=== PATIENT | male | born 1970 | race Caucasian/White ===

== ENCOUNTER 2022-07-11 19:20 | Emergency (ER) | payer MEDICAID ==
[~2022-07-11] VITALS: Ht 172.7 cm; Wt 80.0 kg
[2022-07-11 19:40] VITALS: BP 126/86
[2022-07-11] MEDS ORDERED: AMOX1TAB16 MT (20:12)
[2022-07-11] MEDS ORDERED: GUAI600T26 MT (20:12)
== END 2022-07-11 20:45 | disposition home or self-care (01) ==
LOC: ER 19:20
DX: J32.9 Chronic sinusitis, unspecified (principal); J45.909 Unspecified asthma, uncomplicated; I50.9 Heart failure, unspecified
CPT/HCPCS: 99283

== ENCOUNTER 2023-08-25 10:28 | Emergency (ER) | payer MEDICAID ==
[~2023-08-25] VITALS: Ht 177.8 cm; Wt 77.0 kg
[~2023-08-25 10:28] MED LIST: AMOX1TAB16 MT; GUAI600T26 MT
[2023-08-25 10:30] VITALS: BP 104/66; PULSE 110; RESP 18; TEMP 98.3; O2SAT 98
== END 2023-08-25 11:34 | disposition home or self-care (01) ==
LOC: ER 10:28
DX: F19.90 Other psychoactive substance use, unspecified, uncomplicated (principal); J45.909 Unspecified asthma, uncomplicated; I50.9 Heart failure, unspecified; E78.00 Pure hypercholesterolemia, unspecified; I11.0 Hypertensive heart disease with heart failure; Z98.890 Other specified postprocedural states
CPT/HCPCS: 93005; 99283

== ENCOUNTER 2024-01-05 12:46 | Inpatient (IN) | payer MEDICAID ==
[~2024-01-05] VITALS: Ht 172.7 cm; Wt 89.8 kg
[~2024-01-05 12:46] MED LIST changes: +ALBU6.7H15 INH; +ASPI-1160 PO
[2024-01-05 13:18] LABS: BASOPHILS % 0.6 % (0.0-2.0); DIFFERENTIAL COMMENT 0; EOSINOPHILS % 1.1 % (0.0-5.0); HEMOGLOBIN. 16.4 g/dL (14.0-18.0); MEAN CORPUSCULAR HEMOGLOBIN 27.5 pg (28.0-32.0); MEAN CORPUSCULAR HGB CONC 29.9 g/dL (31.0-37.0); MEAN CORPUSCULAR VOLUME 91.8 fL (80.0-94.0); MEAN PLATELET VOLUME 9.4 fl (7.4-10.4); MONOCYTES % 11.6 % (2.0-8.0); NEUTROPHILS % 65.7 % (40.0-76.0); PLATELET 186 x1000/uL (130-400); RED BLOOD CELL COUNT 5.99 mill/uL (4.7-6.1); WHITE BLOOD COUNT 7.3 x1000/uL (4.5-11.0)
[2024-01-05] MEDS: FUROSEMIDE 20MG TABLET PO ONE (13:45)
[2024-01-05 14:30] LABS: CLARITY URINE CLEAR (CLEAR); COLOR URINE DARK YELLOW (YELLOW); GLUCOSE URINE NEGATIVE (NEGATIVE); KETONES URINE NEGATIVE (NEGATIVE); LEUKOCYTE ESTERASE URINE NEGATIVE (NEGATIVE); NITRITE URINE NEGATIVE (NEGATIVE); OCCULT BLOOD URINE NEGATIVE (NEGATIVE); PH URINE 5.5 (4.5-8.0); PROTEIN URINE 2+ (NEGATIVE); SPECIFIC GRAVITY URINE 1.023 (1.005-1.030)
[2024-01-05 14:44] LABS: SQUAMOUS EPITHELIAL CELL URINE NONE SEEN /lpf (RARE/1+)
[2024-01-05 14:46] LABS: WBC URINE 0-2 /hpf (0-2)
[2024-01-05 14:47] LABS: BACTERIA URINE TRACE; RBC URINE 0-2 /hpf (0-2)
[2024-01-05 15:09] LABS: CARBON DIOXIDE 23 mEq/L (21-32); CHLORIDE 103 mEq/L (98-107); POTASSIUM 5.2 mEq/L (3.5-5.1); SODIUM 132 mEq/L (136-145)
[2024-01-05 15:10] LABS: CALCIUM 8.5 mg/dL (8.7-10.4)
[2024-01-05 15:14] LABS: CREATININE 1.3 mg/dL (0.6-1.3)
[2024-01-05 15:15] LABS: GLUCOSE 120 mg/dL (70-105); UREA NITROGEN BLOOD 30 mg/dL (9-23)
[2024-01-05 15:17] LABS: ALANINE AMINOTRANSFERASE 398 IU/L (10-49); ALBUMIN 2.7 g/dL (3.2-4.8); ASPARTATE AMINOTRANSFERASE 180 IU/L (<34); BILIRUBIN DIRECT 1.5 mg/dL (<=3.0); BILIRUBIN TOTAL 2.9 mg/dL (0.1-1.0); PROTEIN TOTAL 6.4 g/dL (6.0-8.3)
[2024-01-05 15:22] LABS: TROPONIN I HIGH SENSITIVITY 237 ng/L (3.0-53)
[2024-01-05] MEDS ORDERED: FUROSEMIDE 40MG/4ML VIAL IVP ONE (15:45)
[2024-01-05] MEDS: FUROSEMIDE 40MG/4ML VIAL IVP NR (18:03)
[2024-01-05 23:23] LABS: TROPONIN I HIGH SENSITIVITY 208 ng/L (3.0-53)
[2024-01-06 01:28] VITALS: BP 113/76; PULSE 98; RESP 18; TEMP 36.696
[2024-01-06 01:51] VITALS: BP 113/76; RESP 18; TEMP 36.72516; O2SAT 98
[2024-01-06] MEDS ORDERED: MORPHINE SULFATE 2 MG/ML INJ (NOT FOR IM USE) IV PRN (04:30)
[2024-01-06] MEDS: FUROSEMIDE 40MG/4ML VIAL IVP NR (04:41)
[2024-01-06 06:24] LABS: TROPONIN I HIGH SENSITIVITY 243 ng/L (3.0-53)
[2024-01-06 09:00] VITALS: BP 127/88; PULSE 71; RESP 18; TEMP 36.418
[2024-01-06 12:00] VITALS: BP 127/88; PULSE 71; RESP 18; TEMP 36.33624; O2SAT 98
[2024-01-06] MEDS ORDERED: ONDANSETRON HCL 4MG/2ML INJ IV PRN (13:15)
[2024-01-06] MEDS ORDERED: CLONIDINE 0.1MG TABLET PO PRN (13:15)
[2024-01-06] MEDS: FUROSEMIDE 40MG/4ML VIAL IVP SCH (13:29)
[2024-01-06] MEDS ORDERED: MAGNESIUM 2 G PREMIX 50 ML IV ONE (13:30)
[2024-01-06] MEDS: ENOXAPARIN 40MG/0.4ML SYR SUBCUT SCH (13:30)
[2024-01-06 16:00] VITALS: BP 110/76; PULSE 92; RESP 20; TEMP 36.28068; O2SAT 97
[2024-01-06 16:38] LABS: CARBON DIOXIDE 26 mEq/L (21-32); CHLORIDE 103 mEq/L (98-107); POTASSIUM 3.8 mEq/L (3.5-5.1); SODIUM 135 mEq/L (136-145)
[2024-01-06 16:39] LABS: CALCIUM 7.9 mg/dL (8.7-10.4)
[2024-01-06 16:43] LABS: CREATININE 1.2 mg/dL (0.6-1.3); GLUCOSE 117 mg/dL (70-105)
[2024-01-06 16:44] LABS: UREA NITROGEN BLOOD 26 mg/dL (9-23)
[2024-01-06 16:46] LABS: CREATINE KINASE MB FRACTION 7.9 ng/mL (0.5-3.6); PHOSPHORUS 3.8 mg/dL (2.5-4.9)
[2024-01-06 20:00] VITALS: BP 108/76; PULSE 89; RESP 19; TEMP 36.3918; O2SAT 98
[2024-01-06] MEDS ORDERED: ZOLPIDEM TARTRATE 5MG TABLET PO PRN (21:00)
[2024-01-06 22:25] LABS: CREATINE KINASE MB FRACTION 7.2 ng/mL (0.5-3.6)
[2024-01-07] VITALS (10 sets, daily range): BP systolic 103–122; BP diastolic 65–81; PULSE 80–105; RESP 16–26; TEMP 35.2806–36.6696; O2SAT 94–100
[2024-01-07] MEDS: IPRATROPIUM/ALBUTEROL 0.5-3(2.5)MG/3ML NEB HHN SCH (00:52)
[2024-01-07] MEDS: ACETAMINOPHEN 325MG TABLET PO PRN (04:32)
[2024-01-07 07:08] LABS: CHOLESTEROL 85 mg/dL (<200); TRIGLYCERIDE 100 mg/dL (0-150)
[2024-01-07 07:09] LABS: LDL CHOLESTEROL 61 mg/dL (5-100)
[2024-01-07 07:10] LABS: HDL CHOLESTEROL < 20 mg/dL (>55)
[2024-01-07 07:49] LABS: CHLORIDE 102 mEq/L (98-107); POTASSIUM 3.2 mEq/L (3.5-5.1); SODIUM 136 mEq/L (136-145)
[2024-01-07 07:50] LABS: CARBON DIOXIDE 27 mEq/L (21-32)
[2024-01-07 07:51] LABS: CALCIUM 7.4 mg/dL (8.7-10.4)
[2024-01-07 07:55] LABS: CREATININE 1.2 mg/dL (0.6-1.3); GLUCOSE 128 mg/dL (70-105)
[2024-01-07 07:56] LABS: UREA NITROGEN BLOOD 26 mg/dL (9-23)
[2024-01-07] MEDS: MAGNESIUM 4 G PREMIX 100 ML IV NR (11:18)
[2024-01-07 11:47] LABS: CLARITY URINE CLEAR (CLEAR); COLOR URINE YELLOW (YELLOW); GLUCOSE URINE NEGATIVE (NEGATIVE); KETONES URINE NEGATIVE (NEGATIVE); LEUKOCYTE ESTERASE URINE NEGATIVE (NEGATIVE); NITRITE URINE NEGATIVE (NEGATIVE); OCCULT BLOOD URINE NEGATIVE (NEGATIVE); PROTEIN URINE NEGATIVE (NEGATIVE); SPECIFIC GRAVITY URINE 1.008 (1.005-1.030)
[2024-01-07 11:50] LABS: *AMPHETAMINES SCREEN URINE NEGATIVE (NEGATIVE); *BARBITURATES SCREEN URINE NEGATIVE (NEGATIVE); *BENZODIAZEPINES SCREEN URINE NEGATIVE (NEGATIVE); *COCAINE SCREEN URINE NEGATIVE (NEGATIVE)
[2024-01-07 11:51] LABS: CANNABINOID URINE SCREEN PRESUMPTIVE POSITIVE (NEGATIVE); ECSTASY MDMA SCREEN URINE NEGATIVE (NEGATIVE); METHADONE URINE SCREEN NEGATIVE (NEGATIVE); OPIATES URINE SCREEN NEGATIVE (NEGATIVE); PHENCYCLIDINE URINE SCREEN NEGATIVE (NEGATIVE)
[2024-01-07] MEDS: POTASSIUM CHLORIDE 20MEQ/PACKET PO NR (13:14)
[2024-01-07] MEDS: FUROSEMIDE 40MG/4ML VIAL IVP ONE (16:55)
[2024-01-07 19:27] LABS: BASOPHILS % 0.4 % (0.0-2.0); EOSINOPHILS % 1.7 % (0.0-5.0); HEMATOCRIT. 49.5 % (42.0-52.0); HEMOGLOBIN. 15.9 g/dL (14.0-18.0); LYMPHOCYTES % 16.7 % (20.0-50.0); MEAN CORPUSCULAR HEMOGLOBIN 28.2 pg (28.0-32.0); MEAN CORPUSCULAR HGB CONC 32.1 g/dL (31.0-37.0); MEAN CORPUSCULAR VOLUME 87.9 fL (80.0-94.0); MEAN PLATELET VOLUME 8.8 fl (7.4-10.4); MONOCYTES % 11.5 % (2.0-8.0); NEUTROPHILS % 69.7 % (40.0-76.0); PLATELET 181 x1000/uL (130-400); RED BLOOD CELL COUNT 5.63 mill/uL (4.7-6.1); RED CELL DISTRIBUTION WIDTH 16.1 % (11.6-14.6); WHITE BLOOD COUNT 5.2 x1000/uL (4.5-11.0)
[2024-01-07 19:35] LABS: CHLORIDE 100 mEq/L (98-107); POTASSIUM 3.9 mEq/L (3.5-5.1); SODIUM 135 mEq/L (136-145)
[2024-01-07 19:36] LABS: CARBON DIOXIDE 30 mEq/L (21-32)
[2024-01-07 19:37] LABS: CALCIUM 7.8 mg/dL (8.7-10.4)
[2024-01-07 19:41] LABS: CREATININE 1.2 mg/dL (0.6-1.3)
[2024-01-07 19:42] LABS: GLUCOSE 98 mg/dL (70-105); UREA NITROGEN BLOOD 22 mg/dL (9-23)
[2024-01-07 19:55] LABS: TROPONIN I HIGH SENSITIVITY 217 ng/L (3.0-53)
[2024-01-07 20:41] LABS: HEPATITIS B SURFACE ANTIGEN NEGATIVE (Negative)
[2024-01-07 21:01] LABS: HEPATITIS A AB IGM NEGATIVE (Negative)
[2024-01-07 21:02] LABS: HEPATITIS B CORE AB IGM NEGATIVE (Negative); HEPATITIS C AB NON REACTIVE (Neg) (Negative)
[2024-01-08] VITALS (8 sets, daily range): BP systolic 92–114; BP diastolic 60–87; PULSE 66–102; RESP 18–22; TEMP 36.114–36.6696; O2SAT 96–100
[2024-01-08] MEDS: IPRATROPIUM/ALBUTEROL 0.5-3(2.5)MG/3ML NEB HHN PRN (04:24)
[2024-01-08] MEDS ORDERED: FURO-151 MT (10:47)
== END 2024-01-08 15:10 | disposition home or self-care (01) | DRG 190 ==
LOC: ER 12:50 → EDBEDREQ 15:38 → 5WST 16:53 → EDBEDREQ 17:25 → EDBEDREQTM 17:25 → 7EST 01-06 09:17
PROVIDERS: ADMIT Internal Medicine; ATTEND Internal Medicine
DX: I21.4 Non-ST elevation (NSTEMI) myocardial infarction (principal); J96.01 Acute respiratory failure with hypoxia; I50.43 Acute on chronic combined systolic (congestive) and diastolic (congestive) heart failure; I11.0 Hypertensive heart disease with heart failure; J44.1 Chronic obstructive pulmonary disease with (acute) exacerbation; E87.1 Hypo-osmolality and hyponatremia; E88.09 Other disorders of plasma-protein metabolism, not elsewhere classified; F15.10 Other stimulant abuse, uncomplicated; E87.5 Hyperkalemia; E78.00 Pure hypercholesterolemia, unspecified; F17.210 Nicotine dependence, cigarettes, uncomplicated; T50.2X6A Underdosing of carbonic-anhydrase inhibitors, benzothiadiazides and other diuretics, initial encounter; Z91.148 Patient's other noncompliance with medication regimen for other reason; Z59.00 Homelessness unspecified; Y92.89 Other specified places as the place of occurrence of the external cause
CPT/HCPCS: 36415; 71045; 76700; 80048; 80061; 80076; 80305; 81003; 82550; 82553; 82962; 83735; 83880; 84100; 84484; 85025; 86705; 86709; 87340; 93005; 93970; 94640; 99291; C1893; J1650; J1940; J3475

== ENCOUNTER 2024-01-19 13:32 | Inpatient (IN) | payer MEDICAID ==
[~2024-01-19] VITALS: Ht 172.7 cm; Wt 97.7 kg
[~2024-01-19 13:32] MED LIST changes: -AMOX1TAB16 MT; +FURO-151 MT; -GUAI600T26 MT
[2024-01-19] MEDS: PIPERACILLIN/TAZO 3.375G/50ML 50 ML IV ONE (14:51)
[2024-01-19] MEDS: SODIUM CHLORIDE 0.9% 1,000 ML IV ONE (14:51)
[2024-01-19 16:04] LABS: CLARITY URINE CLEAR (CLEAR); COLOR URINE ORANGE (YELLOW); GLUCOSE URINE NEGATIVE (NEGATIVE); KETONES URINE NEGATIVE (NEGATIVE); LEUKOCYTE ESTERASE URINE 1+ (NEGATIVE); NITRITE URINE POSITIVE (NEGATIVE); OCCULT BLOOD URINE TRACE (NEGATIVE); PROTEIN URINE 3+ (NEGATIVE); SPECIFIC GRAVITY URINE 1.028 (1.005-1.030)
[2024-01-19 16:44] LABS: BACTERIA URINE 3+; RBC URINE 0-2 /hpf (0-2); SQUAMOUS EPITHELIAL CELL URINE NONE SEEN /lpf (RARE/1+)
[2024-01-19] MEDS: VANCOMYCIN 1G PREMIX 200 ML IV ONE (17:45)
[2024-01-19 19:08] LABS: DIFFERENTIAL COMMENT 0; EOSINOPHILS % 1.1 % (0.0-5.0); HEMATOCRIT. 48.8 % (42.0-52.0); HEMOGLOBIN. 14.8 g/dL (14.0-18.0); LYMPHOCYTES % 8.2 % (20.0-50.0); MEAN CORPUSCULAR HEMOGLOBIN 27.8 pg (28.0-32.0); MEAN CORPUSCULAR HGB CONC 30.3 g/dL (31.0-37.0); MEAN CORPUSCULAR VOLUME 91.5 fL (80.0-94.0); MEAN PLATELET VOLUME 9.2 fl (7.4-10.4); NEUTROPHILS % 82.7 % (40.0-76.0); PLATELET 170 x1000/uL (130-400); RED BLOOD CELL COUNT 5.33 mill/uL (4.7-6.1); RED CELL DISTRIBUTION WIDTH 16.9 % (11.6-14.6); WHITE BLOOD COUNT 6.2 x1000/uL (4.5-11.0)
[2024-01-19 19:16] LABS: CHLORIDE 100 mEq/L (98-107); POTASSIUM 4.4 mEq/L (3.5-5.1); SODIUM 134 mEq/L (136-145)
[2024-01-19 19:17] LABS: CALCIUM 8.2 mg/dL (8.7-10.4); CARBON DIOXIDE 27 mEq/L (21-32); INR 1.5; PROTHROMBIN TIME 16.3 sec (9.6-11.0)
[2024-01-19 19:22] LABS: CREATININE 1.2 mg/dL (0.6-1.3); GLUCOSE 98 mg/dL (70-105); UREA NITROGEN BLOOD 25 mg/dL (9-23)
[2024-01-19 19:24] LABS: ALANINE AMINOTRANSFERASE 66 IU/L (10-49); ALBUMIN 2.8 g/dL (3.2-4.8); ASPARTATE AMINOTRANSFERASE 65 IU/L (<34); BILIRUBIN DIRECT 1.6 mg/dL (<=3.0); BILIRUBIN TOTAL 2.7 mg/dL (0.1-1.0); PROTEIN TOTAL 6.5 g/dL (6.0-8.3)
[2024-01-19 19:48] LABS: TROPONIN I HIGH SENSITIVITY 242 ng/L (3.0-53)
[2024-01-19 19:49] LABS: LACTIC ACID 4.9 mmol/L (0.4-2.0)
[2024-01-19 21:35] VITALS: BP 141/109; PULSE 111; RESP 18; TEMP 36.78072; O2SAT 96
[2024-01-19] MEDS ORDERED: HYDROCODONE/ACETAMINOPHEN 5/325MG TABLET PO PRN (22:45)
[2024-01-19] MEDS ORDERED: MAGNESIUM/ALUMINUM HYDROXIDE/SIMETHICONE 30ML UDC PO PRN (22:45)
[2024-01-19] MEDS ORDERED: GUAIFENESIN 200MG/10ML SUGAR FREE UDC PO PRN (22:45)
[2024-01-19] MEDS ORDERED: ACETAMINOPHEN 325MG TABLET PO PRN ×2 (22:45)
[2024-01-19] MEDS ORDERED: CLONIDINE 0.1MG TABLET PO PRN (22:45)
[2024-01-19] MEDS ORDERED: DOCUSATE SODIUM 100MG CAPSULE PO PRN (22:45)
[2024-01-19 22:55] VITALS: BP 141/109; PULSE 111; RESP 18; TEMP 36.8072
[2024-01-19 23:15] LABS: PHOSPHORUS 3.8 mg/dL (2.5-4.9)
[2024-01-19] MEDS: FUROSEMIDE 100MG/10ML VIAL IV NR (23:32)
[2024-01-20 00:41] VITALS: BP 113/84; PULSE 62; RESP 19; TEMP 36.16956; O2SAT 95
[2024-01-20] MEDS: ONDANSETRON HCL 4MG/2ML INJ IV PRN (00:54)
[2024-01-20 01:19] LABS: HEPATITIS B SURFACE ANTIGEN NEGATIVE (Negative)
[2024-01-20] MEDS: LORAZEPAM 0.5MG TABLET PO PRN (01:19)
[2024-01-20] MEDS: MAGNESIUM 4 G PREMIX 100 ML IV NR (01:27)
[2024-01-20 01:36] LABS: TROPONIN I HIGH SENSITIVITY 257 ng/L (3.0-53)
[2024-01-20 01:40] LABS: HEPATITIS C AB NON REACTIVE (Neg) (Negative)
[2024-01-20 04:00] VITALS: BP 135/84; PULSE 67; RESP 19; TEMP 35.66952; O2SAT 92
[2024-01-20] MEDS: LEVOFLOXACIN 750MG PREMIX 150 ML IV SCH (04:29)
[2024-01-20 06:13] LABS: AMMONIA 18 uMol/L (<32)
[2024-01-20 06:25] LABS: CALCIUM 8.7 mg/dL (8.7-10.4)
[2024-01-20 06:31] LABS: CREATININE 1.3 mg/dL (0.6-1.3)
[2024-01-20 06:32] LABS: ALANINE AMINOTRANSFERASE 67 IU/L (10-49)
[2024-01-20 06:33] LABS: ALBUMIN 2.8 g/dL (3.2-4.8); ASPARTATE AMINOTRANSFERASE 67 IU/L (<34); BILIRUBIN DIRECT 1.7 mg/dL (<=3.0); T4 FREE 0.62 ng/dL (0.89-1.76); THYROID STIMULATING HORMONE 11.73 uIU/mL (0.55-4.78)
[2024-01-20 06:34] LABS: BILIRUBIN TOTAL 2.8 mg/dL (0.1-1.0); PROTEIN TOTAL 6.6 g/dL (6.0-8.3)
[2024-01-20 06:37] LABS: BASOPHILS % 1.2 % (0.0-2.0); EOSINOPHILS % 1.5 % (0.0-5.0); HEMATOCRIT. 46.3 % (42.0-52.0); HEMOGLOBIN. 14.5 g/dL (14.0-18.0); LYMPHOCYTES % 9.4 % (20.0-50.0); MEAN CORPUSCULAR HEMOGLOBIN 28.1 pg (28.0-32.0); MEAN CORPUSCULAR HGB CONC 31.3 g/dL (31.0-37.0); MEAN CORPUSCULAR VOLUME 89.8 fL (80.0-94.0); MEAN PLATELET VOLUME 9.8 fl (7.4-10.4); MONOCYTES % 9.5 % (2.0-8.0); NEUTROPHILS % 78.4 % (40.0-76.0); PLATELET 202 x1000/uL (130-400); RED BLOOD CELL COUNT 5.15 mill/uL (4.7-6.1); RED CELL DISTRIBUTION WIDTH 16.8 % (11.6-14.6); WHITE BLOOD COUNT 5.8 x1000/uL (4.5-11.0)
[2024-01-20] MEDS: CLINDAMYCIN 600MG PREMIX 50 ML IV SCH (06:50)
[2024-01-20] MEDS ORDERED: KETOROLAC 15MG/ML VIAL IV PRN (07:00)
[2024-01-20 07:06] LABS: TROPONIN I HIGH SENSITIVITY 247 ng/L (3.0-53)
[2024-01-20] MEDS: FUROSEMIDE 40MG/4ML VIAL IV SCH (07:24)
[2024-01-20 08:00] VITALS: BP 109/79; PULSE 111; RESP 19; TEMP 36.61404; O2SAT 94
[2024-01-20 08:41] LABS: BG BASE EXCESS 2.2 mmol/L (-2.0-3.0); BG CARBOXYHEMOGLOBIN 1.6 % (0.5-1.5); BG DEOXYHEMOGLOBIN 5.6 % (0.0-5.0); BG FRACTION INSPIRED OXYGEN 21; BG OXYGEN SATURATION 94.3 % (94.0-98.0); BG OXYHEMOGLOBIN 92.8 % (94.0-98.0); BG PCO2 33.5 mmHg (35.0-48.0); BG PO2 67.9 mmHg (83.0-108.0); BG SAMPLE SITE RIGHT RADIAL; BG TOTAL HEMOGLOBIN 15.7 g/dL (13.5-17.5); BG VENT MODE ROOM AIR
[2024-01-20] MEDS ORDERED: NA PHOS,M-B/NA PHOS,DI-BA ENEMA 118ML PR PRN (09:00)
[2024-01-20] MEDS: ENOXAPARIN 40MG/0.4ML SYR SUBCUT SCH (11:08)
[2024-01-20] MEDS: PANTOPRAZOLE 40MG DR TABLET PO SCH (11:08)
[2024-01-20] MEDS: ASPIRIN 81MG EC TABLET PO SCH (11:09)
[2024-01-20 12:00] VITALS: BP 137/92; PULSE 62; RESP 19; TEMP 36.05844; O2SAT 98
[2024-01-20] MEDS: METRONIDAZOLE 500 MG PREMIX 100 ML IV SCH (16:45)
[2024-01-20] MEDS: CEFTRIAXONE 1GM/50ML 50ML IV SCH (16:45)
[2024-01-20 20:00] VITALS: BP 110/92; PULSE 111; RESP 20; TEMP 36.44736; O2SAT 96
[2024-01-21] VITALS: BP 122/86; PULSE 95; RESP 19; TEMP 36.9474; O2SAT 97
[2024-01-21 00:23] LABS: TROPONIN I HIGH SENSITIVITY 233 ng/L (3.0-53)
[2024-01-21 03:19] LABS: *AMPHETAMINES SCREEN URINE PRESUMPTIVE POSITIVE (NEGATIVE); *BENZODIAZEPINES SCREEN URINE NEGATIVE (NEGATIVE)
[2024-01-21 03:20] LABS: *BARBITURATES SCREEN URINE NEGATIVE (NEGATIVE); *COCAINE SCREEN URINE NEGATIVE (NEGATIVE); CANNABINOID URINE SCREEN PRESUMPTIVE POSITIVE (NEGATIVE); ECSTASY MDMA SCREEN URINE NEGATIVE (NEGATIVE); METHADONE URINE SCREEN NEGATIVE (NEGATIVE); OPIATES URINE SCREEN NEGATIVE (NEGATIVE); PHENCYCLIDINE URINE SCREEN NEGATIVE (NEGATIVE)
[2024-01-21 04:00] VITALS: BP 129/85; PULSE 95; RESP 20; TEMP 35.89176; O2SAT 99
[2024-01-21 08:00] VITALS: BP 113/76; PULSE 98; RESP 20; TEMP 36.3918; O2SAT 100
[2024-01-21] MEDS ORDERED: LIDOCAINE HCL 1% 10 MG/ML 10ML VIAL ONE (09:06)
[2024-01-21 11:47] VITALS: BP 120/78; PULSE 86; RESP 20; TEMP 36.50292; O2SAT 99
[2024-01-21 16:00] VITALS: BP 115/74; PULSE 91; RESP 18; TEMP 36.3918; O2SAT 100
[2024-01-21 20:00] VITALS: BP 109/80; PULSE 89; RESP 19; TEMP 35.8362; O2SAT 94
[2024-01-21] MEDS ORDERED: SULFAMETHOXAZOLE/TRIMETHOPRIM 800/160MG TABLET PO SCH (20:00)
[2024-01-21] MEDS: BETAMETHASONE DIPROPIONATE 0.05% LOTION 60ML TOP SCH (21:39)
[2024-01-21] MEDS: SULFAMETHOXAZOLE/TRIMETHOPRIM 800/160MG TABLET PO SCH (21:39)
[2024-01-22] VITALS: BP 122/86; PULSE 85; RESP 20; TEMP 35.89176; O2SAT 97
[2024-01-22 04:00] VITALS: BP 119/84; PULSE 70; RESP 19; TEMP 36.28068; O2SAT 96
[2024-01-22 07:42] LABS: CHLORIDE 95 mEq/L (98-107); POTASSIUM 3.8 mEq/L (3.5-5.1); SODIUM 132 mEq/L (136-145)
[2024-01-22 07:43] LABS: CARBON DIOXIDE 28 mEq/L (21-32)
[2024-01-22 07:44] LABS: CALCIUM 8.3 mg/dL (8.7-10.4)
[2024-01-22 07:49] LABS: GLUCOSE 79 mg/dL (70-105); UREA NITROGEN BLOOD 35 mg/dL (9-23)
[2024-01-22 07:50] LABS: ALANINE AMINOTRANSFERASE 51 IU/L (10-49); ALBUMIN 2.4 g/dL (3.2-4.8)
[2024-01-22 07:51] LABS: ASPARTATE AMINOTRANSFERASE 62 IU/L (<34); BILIRUBIN TOTAL 2.1 mg/dL (0.1-1.0); PROTEIN TOTAL 5.8 g/dL (6.0-8.3)
[2024-01-22 08:02] LABS: BASOPHILS % 0.9 % (0.0-2.0); EOSINOPHILS % 3.3 % (0.0-5.0); HEMATOCRIT. 44.4 % (42.0-52.0); HEMOGLOBIN. 14.3 g/dL (14.0-18.0); LYMPHOCYTES % 10.1 % (20.0-50.0); MEAN CORPUSCULAR HGB CONC 32.2 g/dL (31.0-37.0); MEAN PLATELET VOLUME 9.7 fl (7.4-10.4); MONOCYTES % 11.5 % (2.0-8.0); NEUTROPHILS % 74.2 % (40.0-76.0); PLATELET 204 x1000/uL (130-400); RED BLOOD CELL COUNT 5.11 mill/uL (4.7-6.1); RED CELL DISTRIBUTION WIDTH 16.6 % (11.6-14.6); WHITE BLOOD COUNT 5.5 x1000/uL (4.5-11.0)
[2024-01-22 08:03] VITALS: BP 120/89; PULSE 57; RESP 20; TEMP 37.11408; O2SAT 95
[2024-01-22] MEDS ORDERED: LIDOCAINE HCL 1% 10 MG/ML 10ML VIAL ONE (08:13)
[2024-01-22 08:26] LABS: CREATININE 1.7 mg/dL (0.6-1.3)
[2024-01-22 12:30] VITALS: BP 116/87; PULSE 102; RESP 18; TEMP 36.50292; O2SAT 100
[2024-01-22 12:52] LABS: AMYLASE BODY FLUID 26 IU/L
[2024-01-22 14:00] LABS: BODY FLUID MONOCYTES 14 %
[2024-01-22 14:01] LABS: BODY FLUID RBC 1930 /cu mm (0-2000); BODY FLUID WBC 235 /cu mm (0-200)
[2024-01-22 16:00] VITALS: BP 113/89; PULSE 71; RESP 20; TEMP 36.50292; O2SAT 94
[2024-01-23] VITALS (7 sets, daily range): BP systolic 101–118; BP diastolic 66–86; PULSE 68–104; RESP 16–20; TEMP 36.55848–37.05852; O2SAT 97–98
[2024-01-23] MEDS: DIPHENHYDRAMINE 25MG CAPSULE PO NR (00:37)
[2024-01-23] MEDS: IPRATROPIUM/ALBUTEROL 0.5-3(2.5)MG/3ML NEB HHN PRN (06:08)
[2024-01-23 07:04] LABS: HEMATOCRIT 44.1 % (42.0-52.0); MEAN CORPUSCULAR HEMOGLOBIN 27.6 pg (28.0-32.0); MEAN CORPUSCULAR HGB CONC 31.7 g/dL (31.0-37.0); PLATELET 187 x1000/uL (130-400); RED BLOOD CELL COUNT 5.07 mill/uL (4.7-6.1); RED CELL DISTRIBUTION WIDTH 16.7 % (11.6-14.6); WHITE BLOOD COUNT 6.5 x1000/uL (4.5-11.0)
[2024-01-23 07:30] LABS: CALCIUM 8.2 mg/dL (8.7-10.4); POTASSIUM 3.4 mEq/L (3.5-5.1)
[2024-01-23 07:36] LABS: CREATININE 1.5 mg/dL (0.6-1.3)
[2024-01-24] MEDS ORDERED: METRONIDAZOLE 500MG TABLET PO SCH (06:00)
[2024-01-27 13:11] LABS: QFT MITOGEN VALUE 1.14 IU/mL (.); QFT TB GOLD PLUS Negative (Negative)
== END 2024-01-23 16:45 | disposition home or self-care (01) | DRG 890 ==
LOC: ER 13:38 → EDBEDREQ 19:55 → EDBEDREQTM 20:20 → EDBEDREQ 20:20 → 7WST 21:50
PROVIDERS: ADMIT Internal Medicine; ATTEND Internal Medicine
PROC: 02HV33Z Insertion of Infusion Device into Superior Vena Cava, Percutaneous Approach (ICD-10-PCS; 2024-01-21)
PROC: B548ZZA Ultrasonography of Superior Vena Cava, Guidance (ICD-10-PCS; 2024-01-21)
PROC: B5181ZA Fluoroscopy of Superior Vena Cava using Low Osmolar Contrast, Guidance (ICD-10-PCS; 2024-01-21)
PROC: 0W9G3ZZ Drainage of Peritoneal Cavity, Percutaneous Approach (ICD-10-PCS; principal; 2024-01-22)
DX: A41.9 Sepsis, unspecified organism (principal); B20 Human immunodeficiency virus [HIV] disease; J96.00 Acute respiratory failure, unspecified whether with hypoxia or hypercapnia; I21.A1 Myocardial infarction type 2; I50.23 Acute on chronic systolic (congestive) heart failure; L03.115 Cellulitis of right lower limb; E87.20 Acidosis, unspecified; J44.1 Chronic obstructive pulmonary disease with (acute) exacerbation; I11.0 Hypertensive heart disease with heart failure; R18.8 Other ascites; L03.116 Cellulitis of left lower limb; K74.60 Unspecified cirrhosis of liver; E87.5 Hyperkalemia; E80.6 Other disorders of bilirubin metabolism; N39.0 Urinary tract infection, site not specified; E78.00 Pure hypercholesterolemia, unspecified; F15.10 Other stimulant abuse, uncomplicated; Z79.899 Other long term (current) drug therapy
CPT/HCPCS: 36415; 36573; 36600; 49083; 71045; 74176; 76700; 80048; 80053; 80076; 80305; 80320; 81003; 82040; 82140; 82150; 82375; 82805; 83605; 83615; 83735; 83880; 84100; 84145; 84439; 84443; 84484; 85025; 85027; 85379; 86480; 86705; 87077; 87340; 93005; 94640; 99291; C1725; C1893; J0696; J1650; J1940; J1956; J2405; J2543; J3370; J3475; J3490; J7030; Q0163; G0480

== ENCOUNTER 2024-01-24 23:29 | Inpatient (IN) | payer MEDICAID ==
[~2024-01-24] VITALS: Ht 172.7 cm; Wt 92.5 kg
[2024-01-24 23:32] VITALS: O2SAT 95
[2024-01-25 01:44] LABS: HEMATOCRIT. 51.6 % (42.0-52.0); HEMOGLOBIN. 16.5 g/dL (14.0-18.0); MEAN CORPUSCULAR HEMOGLOBIN 27.9 pg (28.0-32.0); MEAN CORPUSCULAR VOLUME 87.2 fL (80.0-94.0); MEAN PLATELET VOLUME 9.9 fl (7.4-10.4); PLATELET 209 x1000/uL (130-400); RED BLOOD CELL COUNT 5.92 mill/uL (4.7-6.1); WHITE BLOOD COUNT 12.7 x1000/uL (4.5-11.0)
[2024-01-25 01:51] LABS: DIFFERENTIAL COMMENT 1
[2024-01-25 01:55] LABS: CARBON DIOXIDE 26 mEq/L (21-32); CHLORIDE 95 mEq/L (98-107); POTASSIUM 4.6 mEq/L (3.5-5.1); SODIUM 131 mEq/L (136-145)
[2024-01-25 01:56] LABS: CALCIUM 9.3 mg/dL (8.7-10.4); INR 1.5; PROTHROMBIN TIME 16.7 sec (9.6-11.0)
[2024-01-25 02:01] LABS: UREA NITROGEN BLOOD 38 mg/dL (9-23)
[2024-01-25] MEDS: PANTOPRAZOLE SODIUM 40 MG/VIAL IV ONE (02:01)
[2024-01-25 02:02] LABS: ALANINE AMINOTRANSFERASE 63 IU/L (10-49); ALBUMIN 3.2 g/dL (3.2-4.8); ASPARTATE AMINOTRANSFERASE 120 IU/L (<34)
[2024-01-25 02:03] LABS: BILIRUBIN TOTAL 3.2 mg/dL (0.1-1.0); PROTEIN TOTAL 7.6 g/dL (6.0-8.3)
[2024-01-25] MEDS: SODIUM CHLORIDE 0.9% 1000ML BAG (SEPSIS BOLUS) IV ONE (02:04)
[2024-01-25 02:35] LABS: ETHANOL BLOOD < 10 mg/dL (<10)
[2024-01-25 02:37] LABS: GLUCOSE 47 mg/dL (70-105)
[2024-01-25 02:38] LABS: TROPONIN I HIGH SENSITIVITY 296 ng/L (3.0-53)
[2024-01-25 02:39] LABS: LACTIC ACID 4.6 mmol/L (0.4-2.0)
[2024-01-25 03:53] LABS: TROPONIN I HIGH SENSITIVITY 297 ng/L (3.0-53)
[2024-01-25] MEDS: DEXTROSE 50% WATER 50ML SYRINGE IV ONE (05:15)
[2024-01-25 05:18] LABS: CREATININE 2.2 mg/dL (0.6-1.3)
[2024-01-25] MEDS: PIPERACILLIN/TAZO 3.375G/50ML 50 ML IV ONE (05:30)
[2024-01-25] MEDS: VANCOMYCIN 1G PREMIX 200 ML IV ONE (06:47)
[2024-01-25 07:20] LABS: CLARITY URINE CLEAR (CLEAR); COLOR URINE DARK YELLOW (YELLOW); GLUCOSE URINE NEGATIVE (NEGATIVE); KETONES URINE NEGATIVE (NEGATIVE); LEUKOCYTE ESTERASE URINE TRACE (NEGATIVE); NITRITE URINE NEGATIVE (NEGATIVE); OCCULT BLOOD URINE NEGATIVE (NEGATIVE); PROTEIN URINE 2+ (NEGATIVE); SPECIFIC GRAVITY URINE 1.022 (1.005-1.030)
[2024-01-25 07:41] LABS: *AMPHETAMINES SCREEN URINE PRESUMPTIVE POSITIVE (NEGATIVE); *BARBITURATES SCREEN URINE NEGATIVE (NEGATIVE); *BENZODIAZEPINES SCREEN URINE NEGATIVE (NEGATIVE); *COCAINE SCREEN URINE NEGATIVE (NEGATIVE)
[2024-01-25 07:42] LABS: CANNABINOID URINE SCREEN PRESUMPTIVE POSITIVE (NEGATIVE); ECSTASY MDMA SCREEN URINE NEGATIVE (NEGATIVE); METHADONE URINE SCREEN NEGATIVE (NEGATIVE); OPIATES URINE SCREEN NEGATIVE (NEGATIVE); PHENCYCLIDINE URINE SCREEN NEGATIVE (NEGATIVE)
[2024-01-25] MEDS ORDERED: IPRATROPIUM/ALBUTEROL 0.5-3(2.5)MG/3ML NEB HHN PRN (08:15)
[2024-01-25 08:20] LABS: BACTERIA URINE NONE SEEN; HYALINE CASTS URINE 0-5 /lpf; RBC URINE 0-2 /hpf (0-2); SQUAMOUS EPITHELIAL CELL URINE RARE /lpf (RARE/1+); WHITE BLOOD CELL CASTS URINE 0-5 /lpf; YEAST URINE NONE SEEN
[2024-01-25 08:49] LABS: LACTIC ACID 3.3 mmol/L (0.4-2.0)
[2024-01-25] MEDS: ONDANSETRON HCL 4MG/2ML INJ IV PRN (08:59)
[2024-01-25] MEDS: DIPHENHYDRAMINE 50MG/ML VIAL IM PRN (08:59)
[2024-01-25 09:06] LABS: CHLORIDE 98 mEq/L (98-107); POTASSIUM 4.4 mEq/L (3.5-5.1); SODIUM 132 mEq/L (136-145)
[2024-01-25 09:07] LABS: CALCIUM 8.4 mg/dL (8.7-10.4); CARBON DIOXIDE 27 mEq/L (21-32)
[2024-01-25 09:12] LABS: GLUCOSE 67 mg/dL (70-105); UREA NITROGEN BLOOD 35 mg/dL (9-23)
[2024-01-25 09:14] LABS: BASOPHILS % 0.4 % (0.0-2.0); EOSINOPHILS % 0.4 % (0.0-5.0); HEMATOCRIT. 46.7 % (42.0-52.0); HEMOGLOBIN. 15.2 g/dL (14.0-18.0); LYMPHOCYTES % 7.4 % (20.0-50.0); MEAN CORPUSCULAR HEMOGLOBIN 28.2 pg (28.0-32.0); MEAN CORPUSCULAR HGB CONC 32.5 g/dL (31.0-37.0); MEAN CORPUSCULAR VOLUME 86.9 fL (80.0-94.0); MEAN PLATELET VOLUME 9.2 fl (7.4-10.4); MONOCYTES % 3.6 % (2.0-8.0); NEUTROPHILS % 88.2 % (40.0-76.0); PHOSPHORUS 4.7 mg/dL (2.5-4.9); PLATELET 162 x1000/uL (130-400); RED BLOOD CELL COUNT 5.37 mill/uL (4.7-6.1); RED CELL DISTRIBUTION WIDTH 16.9 % (11.6-14.6); WHITE BLOOD COUNT 8.7 x1000/uL (4.5-11.0)
[2024-01-25] MEDS: PANTOPRAZOLE SODIUM 40 MG/VIAL IV SCH (10:12)
[2024-01-25] MEDS: VANCOMYCIN 750MG/150ML (BAXTER) IV NR (10:12)
[2024-01-25] MEDS: DEXT 5%/0.45% NACL 500ML 500 ML IV ONE (10:12)
[2024-01-25 10:18] LABS: ANISOCYTOSIS 2+; NUCLEATED RED BLOOD CELLS 2 /100 WBC; PLATELET ESTIMATE NORMAL
[2024-01-25] MEDS: ASPIRIN 81MG TABLET PO SCH (11:49)
[2024-01-25] MEDS: PIPERACILLIN/TAZO 3.375G/50ML 50 ML IV SCH (14:49)
[2024-01-25 17:00] VITALS: BP 100/64; PULSE 66; RESP 18; TEMP 36.22512; TEMP 36.2512; O2SAT 93
[2024-01-25 17:04] LABS: CREATINE KINASE 976 IU/L (46-171)
[2024-01-25 17:08] LABS: TROPONIN I HIGH SENSITIVITY 304 ng/L (3.0-53)
[2024-01-25] MEDS ORDERED: DEXTROSE 50% WATER 50ML SYRINGE IV PRN ×2 (18:30)
[2024-01-25 20:00] VITALS: BP 136/72; PULSE 72; RESP 18; TEMP 36.6696; O2SAT 99
[2024-01-25] MEDS ORDERED: BLOOD SUGAR DIAGNOSTIC STRIP TEST SCH (20:00)
[2024-01-25] MEDS: INSULIN LISPRO 100 UNITS/ML SUBCUT SCH (21:00)
[2024-01-25] MEDS: BLOOD SUGAR DIAGNOSTIC STRIP TEST SCH (21:00)
[2024-01-25] MEDS ORDERED: INSULIN LISPRO 100 UNITS/ML SUBCUT SCH (21:00)
[2024-01-26] VITALS: BP 108/72; PULSE 123; RESP 20; TEMP 36.78072; O2SAT 94
[2024-01-26 00:12] LABS: CREATINE KINASE 1614 IU/L (46-171)
[2024-01-26 00:15] LABS: TROPONIN I HIGH SENSITIVITY 366 ng/L (3.0-53)
[2024-01-26 04:00] VITALS: BP 113/85; PULSE 116; RESP 19; TEMP 36.55848; O2SAT 92
[2024-01-26 07:35] LABS: POTASSIUM 4.2 mEq/L (3.5-5.1)
[2024-01-26 07:36] LABS: CALCIUM 8.5 mg/dL (8.7-10.4)
[2024-01-26 07:41] LABS: CREATININE 2.3 mg/dL (0.6-1.3)
[2024-01-26 08:00] VITALS: BP 101/77; PULSE 113; RESP 20; TEMP 36.16956; O2SAT 97
[2024-01-26 08:19] LABS: HEMATOCRIT. 46.9 % (42.0-52.0); HEMOGLOBIN. 14.6 g/dL (14.0-18.0); MEAN CORPUSCULAR HEMOGLOBIN 27.8 pg (28.0-32.0); MEAN CORPUSCULAR HGB CONC 31.2 g/dL (31.0-37.0); MEAN CORPUSCULAR VOLUME 89.1 fL (80.0-94.0); MEAN PLATELET VOLUME 9.4 fl (7.4-10.4); PLATELET 165 x1000/uL (130-400); RED BLOOD CELL COUNT 5.27 mill/uL (4.7-6.1); RED CELL DISTRIBUTION WIDTH 17.2 % (11.6-14.6); WHITE BLOOD COUNT 8.3 x1000/uL (4.5-11.0)
[2024-01-26 08:49] LABS: DIFFERENTIAL COMMENT 1
[2024-01-26 12:00] VITALS: BP 98/79; PULSE 101; RESP 18; TEMP 35.89176; O2SAT 95
[2024-01-26 13:51] LABS: TROPONIN I HIGH SENSITIVITY 427 ng/L (3.0-53)
[2024-01-26] MEDS: FUROSEMIDE 40MG/4ML VIAL IVP SCH (13:59)
[2024-01-26 16:00] VITALS: BP 102/69; PULSE 99; RESP 18; TEMP 37.11408; O2SAT 95
[2024-01-26 20:00] VITALS: BP 99/73; PULSE 100; RESP 22; TEMP 36.89184; O2SAT 97
[2024-01-26 20:50] LABS: PLATELET ESTIMATE NORMAL
[2024-01-27] VITALS: BP 111/69; PULSE 97; RESP 20; TEMP 37.11408; O2SAT 98
[2024-01-27 04:00] VITALS: BP 121/76; PULSE 96; RESP 18; TEMP 37.00296; O2SAT 97
[2024-01-27 06:47] LABS: POTASSIUM 4.3 mEq/L (3.5-5.1)
[2024-01-27 06:49] LABS: CALCIUM 8.2 mg/dL (8.7-10.4)
[2024-01-27 08:00] VITALS: BP 98/69; PULSE 90; RESP 17; TEMP 35.89176; O2SAT 97
[2024-01-27 12:00] VITALS: BP 109/82; PULSE 108; RESP 17; TEMP 36.50292; O2SAT 97
[2024-01-27] MEDS: VANCOMYCIN 1GM/200ML PMX (BAXTER) IV SCH (12:16)
[2024-01-27 16:00] VITALS: BP 102/56; PULSE 90; RESP 17; TEMP 37.00296; O2SAT 98
[2024-01-27 20:00] VITALS: BP 115/62; PULSE 88; RESP 18; TEMP 36.83628; O2SAT 98
[2024-01-27] MEDS: AZITHROMYCIN 500MG/250ML 250 ML IV SCH (23:10)
[2024-01-28] VITALS: BP 118/52; PULSE 78; RESP 18; TEMP 36.6696; O2SAT 97
[2024-01-28 04:00] VITALS: BP 113/57; PULSE 84; RESP 20; TEMP 36.44736; O2SAT 98
[2024-01-28 07:18] LABS: CALCIUM 7.5 mg/dL (8.7-10.4); POTASSIUM 4.1 mEq/L (3.5-5.1)
[2024-01-28 08:00] VITALS: BP 112/85; PULSE 97; RESP 17; TEMP 35.78064; O2SAT 97
[2024-01-28 12:00] VITALS: BP 102/70; PULSE 95; RESP 18; TEMP 35.72508; O2SAT 100
[2024-01-28 16:00] VITALS: BP 103/68; PULSE 65; RESP 17; TEMP 36.50292; O2SAT 100
[2024-01-28] MEDS: FUROSEMIDE 40MG/4ML VIAL IVP SCH (17:28)
[2024-01-28 20:15] VITALS: BP 108/76; PULSE 80; RESP 18; TEMP 36.3918; O2SAT 95
[2024-01-29 00:15] VITALS: BP 100/40; PULSE 84; RESP 18; TEMP 36.16956; O2SAT 95
[2024-01-29 04:10] VITALS: BP 97/58; PULSE 105; RESP 18; TEMP 36.6696; O2SAT 98
[2024-01-29 07:13] LABS: CHLORIDE 96 mEq/L (98-107); POTASSIUM 4.1 mEq/L (3.5-5.1); SODIUM 130 mEq/L (136-145)
[2024-01-29 07:15] LABS: CARBON DIOXIDE 24 mEq/L (21-32)
[2024-01-29 07:16] LABS: CALCIUM 7.8 mg/dL (8.7-10.4)
[2024-01-29 07:20] LABS: CREATININE 2.1 mg/dL (0.6-1.3)
[2024-01-29 07:21] LABS: GLUCOSE 91 mg/dL (70-105); UREA NITROGEN BLOOD 37 mg/dL (9-23)
[2024-01-29 07:22] LABS: ALANINE AMINOTRANSFERASE 63 IU/L (10-49); ALBUMIN 2.2 g/dL (3.2-4.8); ASPARTATE AMINOTRANSFERASE 127 IU/L (<34)
[2024-01-29 07:23] LABS: BILIRUBIN DIRECT 1.4 mg/dL (<=3.0); BILIRUBIN TOTAL 2.2 mg/dL (0.1-1.0); PHOSPHORUS 4.3 mg/dL (2.5-4.9)
[2024-01-29 07:26] LABS: BASOPHILS % 0.6 % (0.0-2.0); EOSINOPHILS % 6.1 % (0.0-5.0); HEMATOCRIT. 45.7 % (42.0-52.0); HEMOGLOBIN. 14.5 g/dL (14.0-18.0); LYMPHOCYTES % 8.1 % (20.0-50.0); MEAN CORPUSCULAR HEMOGLOBIN 27.7 pg (28.0-32.0); MEAN CORPUSCULAR HGB CONC 31.8 g/dL (31.0-37.0); MEAN CORPUSCULAR VOLUME 87.3 fL (80.0-94.0); MEAN PLATELET VOLUME 9.9 fl (7.4-10.4); NEUTROPHILS % 80.2 % (40.0-76.0); PLATELET 105 x1000/uL (130-400); RED BLOOD CELL COUNT 5.23 mill/uL (4.7-6.1); RED CELL DISTRIBUTION WIDTH 16.9 % (11.6-14.6); WHITE BLOOD COUNT 7.3 x1000/uL (4.5-11.0)
[2024-01-29 07:47] LABS: PROTEIN TOTAL 5.6 g/dL (6.0-8.3)
[2024-01-29 08:00] VITALS: BP 108/76; PULSE 103; RESP 18; TEMP 36.50292; O2SAT 96
[2024-01-29 12:00] VITALS: BP 100/73; PULSE 87; RESP 18; TEMP 36.50292; O2SAT 94
[2024-01-29 16:00] VITALS: BP_SYST 100; BP_SYST 106; BP_DIAS 64; BP_DIAS 73; PULSE 78; PULSE 87; RESP 20; RESP 22; TEMP 36.50292; O2SAT 94
[2024-01-29] MEDS: SULFAMETHOXAZOLE/TRIMETHOPRIM 800/160MG TABLET PO SCH (17:40)
[2024-01-29 20:00] VITALS: BP 122/78; PULSE 86; RESP 18; TEMP 36.61404; O2SAT 98
== END 2024-01-30 03:00 | DRG 890 ==
LOC: ER 23:29 → 5WST 01-25 05:38 → 8WST 01-25 16:43
PROVIDERS: ADMIT Internal Medicine; ATTEND Internal Medicine
PROC: 5A12012 Performance of Cardiac Output, Single, Manual (ICD-10-PCS; principal; 2024-01-29)
PROC: 0BH18EZ Insertion of Endotracheal Airway into Trachea, Via Natural or Artificial Opening Endoscopic (ICD-10-PCS; 2024-01-29)
DX: A41.9 Sepsis, unspecified organism (principal); B20 Human immunodeficiency virus [HIV] disease; J96.00 Acute respiratory failure, unspecified whether with hypoxia or hypercapnia; R65.20 Severe sepsis without septic shock; I46.9 Cardiac arrest, cause unspecified; K29.01 Acute gastritis with bleeding; I31.39 Other pericardial effusion (noninflammatory); I50.23 Acute on chronic systolic (congestive) heart failure; E87.1 Hypo-osmolality and hyponatremia; N17.9 Acute kidney failure, unspecified; J44.1 Chronic obstructive pulmonary disease with (acute) exacerbation; E16.2 Hypoglycemia, unspecified; E78.00 Pure hypercholesterolemia, unspecified; F15.10 Other stimulant abuse, uncomplicated; I11.0 Hypertensive heart disease with heart failure; E03.9 Hypothyroidism, unspecified; F17.200 Nicotine dependence, unspecified, uncomplicated; K70.31 Alcoholic cirrhosis of liver with ascites; E87.20 Acidosis, unspecified; Z91.148 Patient's other noncompliance with medication regimen for other reason; Z79.82 Long term (current) use of aspirin; Z79.899 Other long term (current) drug therapy; Z86.711 Personal history of pulmonary embolism
CPT/HCPCS: 31500; 36415; 71045; 71250; 74176; 80048; 80076; 80202; 80305; 80320; 81003; 82550; 82947; 82962; 83036; 83605; 83735; 83880; 84100; 84145; 84484; 85025; 86850; 86900; 92950; 93005; 93970; 97162; 97166; 99291; A6261; C1893; J0456; J1200; J1815; J1940; J2470; J2543; J3370; J7030; G0480